=== PATIENT | female | born 1955 | race Caucasian/White ===

== ENCOUNTER → 2017-10-21 | Outpatient (CLI) | payer BC ==
--- NOTE | 2017-10-22 13:37 | MM ---
Reason for exam: screening (asymptomatic). Last mammogram was performed 1 year and 6 months ago. History: Patient is postmenopausal, has history of other cancer at age 58, and has history of colon cancer at age 57. Family history of breast cancer in paternal grandmother. Physical Findings: A clinical breast exam by your physician is recommended on an annual basis and results should be correlated with mammographic findings. MG Screening Mammo w CAD Bilateral CC and MLO view(s) were taken. Prior study comparison: April 16, 2016, bilateral MG 3d screening mammo w/cad. October 22, 2008, mammogram, performed at [facility] [place]. The breast tissue is almost entirely fat. No significant changes when compared with prior studies. ASSESSMENT: Benign, BI-RAD 2 RECOMMENDATION: Routine screening mammogram of both breasts in 1 year.
== END | disposition home or self-care (01) ==
LOC: RADMAMWWP 14:02
PROVIDERS: ATTEND Internal Medicine
DX: Z12.31 Encounter for screening mammogram for malignant neoplasm of breast (principal)
CPT/HCPCS: 77067

== ENCOUNTER → 2018-09-22 | Outpatient (CLI) | payer BC ==
[2018-09-22 12:31] LABS: Basophils % (A) 1 %; Eosinophils # (A) 0.2 k/uL (0-0.7); Eosinophils % (A) 3 %; HCT 41.4 % (34.0-46.0); HGB 13.3 gm/dL (11.4-16.0); Lymphocytes # (A) 2.6 k/uL (1.0-4.8); Lymphocytes % (A) 38 %; MCH 28.7 pg (25.0-35.0); MCHC 32.1 g/dL (31.0-37.0); MCV 89.4 fL (80.0-100.0); Mean Platelet Volume 6.1; Monocytes # (A) 0.3 k/uL (0-1.0); Monocytes % (A) 4 %; Neutrophils # (A) 3.7 k/uL (1.3-7.7); Neutrophils % (A) 53 %; Platelet Count 180 k/uL (150-450); RBC 4.63 m/uL (3.80-5.40); RDW 14.4 % (11.5-15.5); WBC 6.9 k/uL (3.8-10.6)
[2018-09-22 13:33] LABS: Erythrocyte Sedimentation Rate 19 mm/hr (0-20)
[2018-09-23 12:05] LABS: Angiotensin-1 Converting Enz. 7 U/L (8-52)
== END ==
LOC: LABWHC1 11:49
PROVIDERS: ATTEND Ophthalmology
DX: M31.6 Other giant cell arteritis (principal)
CPT/HCPCS: 36415; 82164; 85025; 85549; 85652; 86140

== ENCOUNTER 2019-12-12 16:50 | Emergency (ER) | payer BC ==
[2019-12-12 16:54] LABS: Glucose,Whole Blood 104 mg/dL (75-99)
[2019-12-12] MEDS ORDERED: SODIUM CHLORIDE 0.9% 1,000 ML IV ONE (17:33)
--- NOTE | 2019-12-12 17:43 | ED ---
General Adult HPI - General Chief complaint: Neuro Symptoms/Deficit Stated complaint: altered Time Seen by Provider: 12/12/19 17:21 Source: patient, EMS, RN notes reviewed Mode of arrival: EMS Limitations: no limitations - History of Present Illness Initial comments: Patient is a pleasant 64-year-old female presenting to the emergency department with change in mental status. Onset of symptoms was noticed around 9 AM when she woke this morning. Last reported known well was last night. Patient does have history of brain tumor and has recently been on chemo and radiation. Patient is a poor historian. Patient answers some questions appropriately and others inappropriately. Patient is unable to provide any additional history about brain tumor. Patient is able to follow commands appropriately. Patient reportedly has a chronic left facial droop. Patient does admit that she feels confused - Related Data Previous Rx's Medication Instructions Recorded Dexamethasone [Decadron] 4 mg PO BID #14 tablet 12/12/19 Allergies Allergy/AdvReac Type Severity Reaction Status Date / Time shellfish derived [Shellfish] Allergy Rash/Hives Verified 12/12/19 17:01 Review of Systems ROS Statement: Those systems with pertinent positive or pertinent negative responses have been documented in the HPI. ROS Other: All systems not noted in ROS Statement are negative. Constitutional: Denies: fever Eyes: Denies: eye pain ENT: Denies: ear pain Respiratory: Denies: cough Cardiovascular: Denies: chest pain Endocrine: Denies: fatigue Gastrointestinal: Denies: abdominal pain Genitourinary: Denies: dysuria Musculoskeletal: Denies: back pain Skin: Denies: rash Neurological: Reports: as per HPI, confusion. Denies: headache, weakness Past Medical History Past Medical History: Hyperlipidemia, Hypertension Additional Past Medical History / Comment(s): Brain tumor Smoking Status: Never smoker Past Alcohol Use History: None Reported Past Drug Use History: None Reported General Exam Limitations: no limitations General appearance: alert, in no apparent distress Head exam: Present: normocephalic Eye exam: Present: normal appearance, PERRL, EOMI ENT exam: Present: normal oropharynx Neck exam: Present: normal inspection Respiratory exam: Present: normal lung sounds bilaterally Cardiovascular Exam: Present: regular rate, normal rhythm GI/Abdominal exam: Present: soft. Absent: tenderness Extremities exam: Present: normal inspection Neurological exam: Present: alert, altered, CN II-XII intact (Except for left facial droop) Expanded Neurological exam: Present: protecting the airway, other (Patient occasionally speaks in nonsensical sentences) Patient oriented to: Present: person. Absent: place, time Cranial nerves: EOM's Intact: Normal Motor strength exam: RUE: 5, LUE: 5, RLE: 5, LLE: 5 Eye Response: (4) open spontaneously Motor Response: (6) obeys commands Verbal Response: (4) confused conversation Psychiatric exam: Present: normal affect, normal mood Skin exam: Present: normal color Course Vital Signs 12/12/19 12/12/19 12/12/19 16:50 16:52 17:00 Temperature 98.3 F 98.3 F Pulse Rate 60 112 H Respiratory 18 18 Rate Blood Pressure 164/96 164/96 181/64 O2 Sat by Pulse 98 98 98 Oximetry 12/12/19 12/12/19 12/12/19 17:15 17:30 17:45 Temperature Pulse Rate Respiratory 18 18 18 Rate Blood Pressure 177/81 168/88 195/88 O2 Sat by Pulse 98 98 98 Oximetry 12/12/19 12/12/19 17:59 19:17 Temperature 98.7 F Pulse Rate 112 H 102 H Respiratory 17 18 Rate Blood Pressure 181/84 O2 Sat by Pulse 97 97 Oximetry EKG Findings - EKG Comments: EKG Findings:: Sinus tachycardia 106. MT 150. QRS 86. QT 376. QTc 499. Normal axis. Normal QRS. No acute ST change. Medical Decision Making - Medical Decision Making Patient reevaluated twice. Patient and family updated. Case was discussed in detail with Dr. Ghosh out of [facility] who is very familiar with this patient. He feels CT findings are similar to previous and symptoms are likely from edema. He does recommend steroids, Decadron 10 mg IV followed by 4 mg orally twice daily. He recommends providing one week. He will file follow-up with this patient in less than a week. Patient and family are advised to call tomorrow. Dr. Ghosh said he would schedule patient for MRI. - Lab Data Result diagrams: 12/12/19 16:55 12/12/19 16:55 Lab Results 12/12/19 12/12/19 12/12/19 Range/Units 16:52 16:55 16:55 WBC 6.5 (3.8-10.6) k/uL RBC 3.28 L (3.80-5.40) m/uL Hgb 9.5 L (11.4-16.0) gm/dL Hct 29.8 L (34.0-46.0) % MCV 90.6 (80.0-100.0) fL MCH 28.8 (25.0-35.0) pg MCHC 31.8 (31.0-37.0) g/dL RDW 19.1 H (11.5-15.5) % Plt Count 211 (150-450) k/uL Neutrophils % 78 % Lymphocytes % 10 % Monocytes % 7 % Eosinophils % 1 % Basophils % 0 % Neutrophils # 5.1 (1.3-7.7) k/uL Lymphocytes # 0.7 L (1.0-4.8) k/uL Monocytes # 0.5 (0-1.0) k/uL Eosinophils # 0.1 (0-0.7) k/uL Basophils # 0.0 (0-0.2) k/uL Anisocytosis Slight PT 10.5 (9.0-12.0) sec INR 1.0 (<1.2) APTT 24.0 (22.0-30.0) sec Sodium (137-145) mmol/L Potassium (3.5-5.1) mmol/L Chloride (98-107) mmol/L Carbon Dioxide (22-30) mmol/L Anion Gap mmol/L BUN (7-17) mg/dL Creatinine (0.52-1.04) mg/dL Est GFR (CKD-EPI)AfAm (>60 ml/min/1.73 sqM) Est GFR (CKD-EPI)NonAf (>60 ml/min/1.73 sqM) Glucose (74-99) mg/dL POC Glucose (mg/dL) 104 H (75-99) mg/dL POC Glu Leather Sorter ID Korean, Priya Calcium (8.4-10.2) mg/dL Total Bilirubin (0.2-1.3) mg/dL AST (14-36) U/L ALT (4-34) U/L Alkaline Phosphatase (38-126) U/L Troponin I (0.000-0.034) ng/mL Total Protein (6.3-8.2) g/dL Albumin (3.5-5.0) g/dL Urine Opiates Screen (NotDetected) Ur Oxycodone Screen (NotDetected) Urine Methadone Screen (NotDetected) Ur Propoxyphene Screen (NotDetected) Ur Barbiturates Screen (NotDetected) U Tricyclic Antidepress (NotDetected) Ur Phencyclidine Scrn (NotDetected) Ur Amphetamines Screen (NotDetected) U Methamphetamines Scrn (NotDetected) U Benzodiazepines Scrn (NotDetected) Urine Cocaine Screen (NotDetected) U Marijuana (THC) Screen (NotDetected) 12/12/19 12/12/19 12/12/19 Range/Units 16:55 16:55 17:44 WBC (3.8-10.6) k/uL RBC (3.80-5.40) m/uL Hgb (11.4-16.0) gm/dL Hct (34.0-46.0) % MCV (80.0-100.0) fL MCH (25.0-35.0) pg MCHC (31.0-37.0) g/dL RDW (11.5-15.5) % Plt Count (150-450) k/uL Neutrophils % % Lymphocytes % % Monocytes % % Eosinophils % % Basophils % % Neutrophils # (1.3-7.7) k/uL Lymphocytes # (1.0-4.8) k/uL Monocytes # (0-1.0) k/uL Eosinophils # (0-0.7) k/uL Basophils # (0-0.2) k/uL Anisocytosis PT (9.0-12.0) sec INR (<1.2) APTT (22.0-30.0) sec Sodium 131 L (137-145) mmol/L Potassium 3.4 L (3.5-5.1) mmol/L Chloride 86 L (98-107) mmol/L Carbon Dioxide 35 H (22-30) mmol/L Anion Gap 10 mmol/L BUN 18 H (7-17) mg/dL Creatinine 0.86 (0.52-1.04) mg/dL Est GFR (CKD-EPI)AfAm 83 (>60 ml/min/1.73 sqM) Est GFR (CKD-EPI)NonAf 72 (>60 ml/min/1.73 sqM) Glucose 101 H (74-99) mg/dL POC Glucose (mg/dL) (75-99) mg/dL POC Glu Leather Sorter ID Calcium 8.5 (8.4-10.2) mg/dL Total Bilirubin 0.9 (0.2-1.3) mg/dL AST 22 (14-36) U/L ALT 10 (4-34) U/L Alkaline Phosphatase 58 (38-126) U/L Troponin I 0.016 (0.000-0.034) ng/mL Total Protein 6.6 (6.3-8.2) g/dL Albumin 3.7 (3.5-5.0) g/dL Urine Opiates Screen Detected H (NotDetected) Ur Oxycodone Screen Not Detected (NotDetected) Urine Methadone Screen Not Detected (NotDetected) Ur Propoxyphene Screen Not Detected (NotDetected) Ur Barbiturates Screen Not Detected (NotDetected) U Tricyclic Antidepress Not Detected (NotDetected) Ur Phencyclidine Scrn Not Detected (NotDetected) Ur Amphetamines Screen Not Detected (NotDetected) U Methamphetamines Scrn Not Detected (NotDetected) U Benzodiazepines Scrn Not Detected (NotDetected) Urine Cocaine Screen Not Detected (NotDetected) U Marijuana (THC) Screen Not Detected (NotDetected) - Radiology Data Radiology results: image reviewed (Computed tomography scan of brain shows edema involving left temporal lobe with extension to the floor with disruption of the greater sphenoid with soft tissue setting to the pterygoid region. Soft tissue extends posterior wall left maxillary sinus also with irregularity left temporal bone. Two-view chest x-ray shows no acute process) Disposition Clinical Impression: Expressive aphasia, Vasogenic brain edema Disposition: HOME SELF-CARE Condition: Stable Instructions (If sedation given, give patient instructions): Aphasia (DC), Expressive Aphasia Exercises (DC), Brain Tumors (DC) Additional Instructions: Please do follow-up with your primary care physician in the next couple of days for recheck. Please also follow-up with Dr. Mendosa within the next couple of days, call tomorrow. Return for increased confusion, difficulty breathing, weakness, worsening or changing symptoms or other concerns. Prescriptions: Dexamethasone [Decadron] 4 mg PO BID #14 tablet Is patient prescribed a controlled substance at d/c from ED?: No Referrals: Dara Ryan MD [Primary Care Provider] - 1-2 days Time of Disposition: 19:50
[2019-12-12 17:56] LABS: Anisocytosis Slight; Basophils % (A) 0 %; Eosinophils # (A) 0.1 k/uL (0-0.7); Eosinophils % (A) 1 %; HCT 29.8 % (34.0-46.0); HGB 9.5 gm/dL (11.4-16.0); Lymphocytes # (A) 0.7 k/uL (1.0-4.8); Lymphocytes % (A) 10 %; MCH 28.8 pg (25.0-35.0); MCHC 31.8 g/dL (31.0-37.0); MCV 90.6 fL (80.0-100.0); Monocytes # (A) 0.5 k/uL (0-1.0); Monocytes % (A) 7 %; Neutrophils # (A) 5.1 k/uL (1.3-7.7); Neutrophils % (A) 78 %; Platelet Count 211 k/uL (150-450); RBC 3.28 m/uL (3.80-5.40); RDW 19.1 % (11.5-15.5); WBC 6.5 k/uL (3.8-10.6)
[2019-12-12 18:04] LABS: Amphetamine Screen,Urine Not Detected (NotDetected); Barbiturate Screen,Urine Not Detected (NotDetected); Benzodiazepines Screen,Urine Not Detected (NotDetected); Cocaine Screen,Urine Not Detected (NotDetected); Methadone Screen, Urine Not Detected (NotDetected); Opiate Screen,Urine Detected (NotDetected); Oxycodone Screen, Urine Not Detected (NotDetected); Phencyclidine Screen,Urine Not Detected (NotDetected); Tricyclic Antidepressant,Urine Not Detected (NotDetected); Urn Cannabinoid Scrn Not Detected (NotDetected)
[2019-12-12 18:07] LABS: Albumin 3.7 g/dL (3.5-5.0); Calcium 8.5 mg/dL (8.4-10.2); Potassium 3.4 mmol/L (3.5-5.1); Total Bilirubin 0.9 mg/dL (0.2-1.3); Total Protein 6.6 g/dL (6.3-8.2)
[2019-12-12 18:14] LABS: Prothrombin Time 10.5 sec (9.0-12.0)
--- NOTE | 2019-12-12 18:14 | CT ---
EXAMINATION TYPE: CT brain wo con DATE OF EXAM: 12/12/2019 COMPARISON: None at this institution HISTORY: AMS, HX BRAIN TUMOR, CHEMO AND RADIATION CT DLP: 1035.[address] of the brain was performed. There is vasogenic edema involving the left temporal lobe with extension into the floor of the left t emporal lobe. There is destruction of the greater wing of the sphenoid on the left with soft tissue e xtending into the pterygoid region. Soft tissue extends to the posterior wall of the left maxillary s inus. There is also irregularity of the left temporal bone. There is complete opacification left mast oid air cells. There is decreased attenuation about the periventricular white matter and deep white matter of both c erebral hemispheres, compatible with chronic small vessel ischemia. Differential diagnosis does inclu de demyelination. No evidence for midline shift. No intracranial hemorrhage identified. Osseous calvarium is intact. If symptoms persist consider MRI. IMPRESSION: 1. There is vasogenic edema involving the left temporal lobe with extension into the floor of the lef t temporal lobe. There is destruction of the greater wing of the sphenoid on the left with soft tissu e extending into the pterygoid region. Soft tissue extends to the posterior wall of the left maxillar y sinus. There is also irregularity of the left temporal bone.
--- NOTE | 2019-12-12 18:18 | XR ---
EXAMINATION TYPE: XR chest 2V DATE OF EXAM: 12/12/2019 COMPARISON: 02/23/2013 HISTORY: Chest pain TECHNIQUE: Frontal and lateral views of the chest are obtained. FINDINGS: There is no focal air space opacity. Right-sided MediPort catheter is in place. No evidence for pneumothorax. No pleural effusion. The cardiac silhouette size is within normal limits. The osseous structures are grossly intact. IMPRESSION: 1. No acute cardiopulmonary process.
[2019-12-12 19:17] VITALS: RESP 18
[2019-12-12] MEDS ORDERED: DEXAMETHASONE SOD PHOSPHATE 10 MG/ML 1 ML VIAL IV STA (19:33)
[2019-12-12 19:56] VITALS: BP 172/92; PULSE 116; TEMP 98.6
== END 2019-12-12 20:00 | disposition home or self-care (01) ==
LOC: EC 16:50
DX: G93.6 Cerebral edema (principal); R47.01 Aphasia; R29.810 Facial weakness; R41.82 Altered mental status, unspecified; Z91.013 Allergy to seafood; Z85.841 Personal history of malignant neoplasm of brain; Z92.21 Personal history of antineoplastic chemotherapy; Z92.3 Personal history of irradiation
CPT/HCPCS: 36415; 93005; 80053; 84484; 85025; 85610; 85730; 80306; 71046; 70450; 99285; 96374; J1100

== ENCOUNTER 2020-01-15 11:51 | Inpatient (IN) | payer BC, MEDICARE ==
[2020-01-15] MEDS ORDERED: SODIUM CHLORIDE 0.9% 500 ML 500 ML IV ONE (12:07)
[2020-01-15] MEDS ORDERED: SODIUM CHLORIDE 0.9% 1,000 ML IV STA (12:19)
--- NOTE | 2020-01-15 12:22 | ED ---
General Adult HPI - General Chief complaint: Syncope Stated complaint: Near syncope Time Seen by Provider: 01/15/20 11:57 Source: patient, family, EMS, RN notes reviewed Mode of arrival: EMS Limitations: no limitations - History of Present Illness Initial comments: Patient is a pleasant [age]-year-old female presenting to the emergency Department with near syncopal episode. 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 Patient finished chemo and radiation one week ago. Patient has been more fatigued the past few days. Decreased oral intake secondary to swelling on the left side of the face and difficulty opening her jaw. Patient is not currently on Decadron. Patient had an episode this morning where she felt generally weak and fell. Family helped her lower down without injury. No loss of consciousness. No confusion. - Related Data Home Medications Medication Instructions Recorded Confirmed Dapagliflozin Propanediol [Farxiga] 10 mg PO DAILY 01/15/20 01/15/20 Dexamethasone [Decadron] 4 mg PO Q48H 01/15/20 01/15/20 Gabapentin 900 mg PO TID 01/15/20 01/15/20 Levothyroxine Sodium [Synthroid] 175 mcg PO DAILY 01/15/20 01/15/20 Lisinopril 20 mg PO BID 01/15/20 01/15/20 Morphine Sulfate ER [Ms Contin] 30 mg PO Q12HR 01/15/20 01/15/20 amLODIPine [Norvasc] 10 mg PO DAILY 01/15/20 01/15/20 metFORMIN HCL 1,000 mg PO BID 01/15/20 01/15/20 oxyCODONE HCL/ACETAMINOPHEN 1 tab PO Q6HR 01/15/20 01/15/20 [Percocet 7.5-325 mg] Allergies Allergy/AdvReac Type Severity Reaction Status Date / Time shellfish derived [Shellfish] Allergy Rash/Hives Verified 01/15/20 12:50 Review of Systems ROS Statement: Those systems with pertinent positive or pertinent negative responses have been documented in the HPI. ROS Other: All systems not noted in ROS Statement are negative. 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 History of Any Multi-Drug Resistant Organisms: None Reported Past Surgical History: Cholecystectomy, Orthopedic Surgery Additional Past Surgical History / Comment(s): right chest port Past Psychological History: No Psychological Hx Reported Smoking Status: Never smoker Past Alcohol Use History: None Reported Past Drug Use History: None Reported General Exam Limitations: no limitations General appearance: alert, in no apparent distress Head exam: Present: atraumatic, other ((Facial swelling) Eye exam: Present: other (Left eye with cataract and decreased responsiveness.) ENT exam: Present: other (Only able to open his mouth approximately 25%. No gross abnormality otherwise visualize inside. Left facial swelling.) Neck exam: Present: normal inspection Respiratory exam: Present: normal lung sounds bilaterally Cardiovascular Exam: Present: tachycardia, irregular rhythm GI/Abdominal exam: Present: soft. Absent: tenderness Extremities exam: Present: normal inspection Neurological exam: Present: alert. Absent: motor sensory deficit Expanded Motor strength exam: RUE: 5, LUE: 5, RLE: 4, LLE: 4 Psychiatric exam: Present: normal affect, normal mood Skin exam: Present: normal color Course Vital Signs 01/15/20 01/15/20 01/15/20 11:53 12:05 12:26 Temperature 98 F Pulse Rate 165 H 113 H 114 H Respiratory 18 18 18 Rate Blood Pressure 107/78 111/80 125/83 O2 Sat by Pulse 98 98 Oximetry 01/15/20 14:33 Temperature Pulse Rate 104 H Respiratory 18 Rate Blood Pressure 126/69 O2 Sat by Pulse 98 Oximetry EKG Findings - EKG Comments: EKG Findings:: A. fib with RVR, rate 163. QRS 4. QT 266. QTc 438. Normal axis. Normal QRS. Nonspecific ST-T. Medical Decision Making - Medical Decision Making Patient reevaluated. Patient and family updated. Case was discussed in detail with Dr. Bui, who did come evaluate the patient and will admit covering for Dr. Ryan. Case was also discussed with oncology, Dr. Jaramillo and practitioner Dannie including CT report and pneumocephalus, who will consult. They do recommend Unasyn at this time. - Lab Data Result diagrams: 01/15/20 12:00 01/15/20 12:00 Lab Results 01/15/20 01/15/20 01/15/20 Range/Units 12:00 12:00 12:00 WBC 10.4 (3.8-10.6) k/uL RBC 3.26 L (3.80-5.40) m/uL Hgb 10.0 L (11.4-16.0) gm/dL Hct 31.2 L (34.0-46.0) % MCV 96.0 D (80.0-100.0) fL MCH 30.8 (25.0-35.0) pg MCHC 32.1 (31.0-37.0) g/dL RDW 16.9 H (11.5-15.5) % Plt Count 189 (150-450) k/uL Neutrophils % 90 % Lymphocytes % 3 % Monocytes % 4 % Eosinophils % 1 % Basophils % 0 % Neutrophils # 9.4 H (1.3-7.7) k/uL Lymphocytes # 0.3 L (1.0-4.8) k/uL Monocytes # 0.5 (0-1.0) k/uL Eosinophils # 0.1 (0-0.7) k/uL Basophils # 0.0 (0-0.2) k/uL Anisocytosis Slight PT 10.2 (9.0-12.0) sec INR 1.0 (<1.2) APTT 27.1 (22.0-30.0) sec Sodium 131 L (137-145) mmol/L Potassium 4.5 (3.5-5.1) mmol/L Chloride 100 (98-107) mmol/L Carbon Dioxide 23 (22-30) mmol/L Anion Gap 8 mmol/L BUN 36 H (7-17) mg/dL Creatinine 1.07 H (0.52-1.04) mg/dL Est GFR (CKD-EPI)AfAm 63 (>60 ml/min/1.73 sqM) Est GFR (CKD-EPI)NonAf 55 (>60 ml/min/1.73 sqM) Glucose 137 H (74-99) mg/dL Calcium 8.2 L (8.4-10.2) mg/dL Magnesium 1.2 L (1.6-2.3) mg/dL Total Bilirubin 1.0 (0.2-1.3) mg/dL AST 15 (14-36) U/L ALT 13 (4-34) U/L Alkaline Phosphatase 91 (38-126) U/L Troponin I (0.000-0.034) ng/mL Total Protein 5.8 L (6.3-8.2) g/dL Albumin 3.0 L (3.5-5.0) g/dL 01/15/20 Range/Units 12:00 WBC (3.8-10.6) k/uL RBC (3.80-5.40) m/uL Hgb (11.4-16.0) gm/dL Hct (34.0-46.0) % MCV (80.0-100.0) fL MCH (25.0-35.0) pg MCHC (31.0-37.0) g/dL RDW (11.5-15.5) % Plt Count (150-450) k/uL Neutrophils % % Lymphocytes % % Monocytes % % Eosinophils % % Basophils % % Neutrophils # (1.3-7.7) k/uL Lymphocytes # (1.0-4.8) k/uL Monocytes # (0-1.0) k/uL Eosinophils # (0-0.7) k/uL Basophils # (0-0.2) k/uL Anisocytosis PT (9.0-12.0) sec INR (<1.2) APTT (22.0-30.0) sec Sodium (137-145) mmol/L Potassium (3.5-5.1) mmol/L Chloride (98-107) mmol/L Carbon Dioxide (22-30) mmol/L Anion Gap mmol/L BUN (7-17) mg/dL Creatinine (0.52-1.04) mg/dL Est GFR (CKD-EPI)AfAm (>60 ml/min/1.73 sqM) Est GFR (CKD-EPI)NonAf (>60 ml/min/1.73 sqM) Glucose (74-99) mg/dL Calcium (8.4-10.2) mg/dL Magnesium (1.6-2.3) mg/dL Total Bilirubin (0.2-1.3) mg/dL AST (14-36) U/L ALT (4-34) U/L Alkaline Phosphatase (38-126) U/L Troponin I <0.012 (0.000-0.034) ng/mL Total Protein (6.3-8.2) g/dL Albumin (3.5-5.0) g/dL - Radiology Data Radiology results: report reviewed (Computed tomography scan of the brain shows left temporal mass or neoplasm redemonstrated. 2.2 x 0.9 cm. Left temporal lobe extending to parietal lobe. Distraction of temporal bone and maxilla. Abnormal tissue extending to the left orbit and left masseter muscles. Some pneumocephalus inferior left temporal lobe now present.), image reviewed (Chest x-ray shows chronic changes without acute process.) Disposition Clinical Impression: Dehydration, Near syncope, Brain mass Disposition: ADMITTED IP TO THIS HOSP Is patient prescribed a controlled substance at d/c from ED?: No Referrals: Dara Ryan MD [Primary Care Provider] - 1-2 days Decision Time: 15:04
[2020-01-15 12:35] LABS: Anisocytosis Slight; Basophils % (A) 0 %; Eosinophils # (A) 0.1 k/uL (0-0.7); Eosinophils % (A) 1 %; HCT 31.2 % (34.0-46.0); Lymphocytes # (A) 0.3 k/uL (1.0-4.8); Lymphocytes % (A) 3 %; MCH 30.8 pg (25.0-35.0); MCHC 32.1 g/dL (31.0-37.0); Mean Platelet Volume 6.9; Monocytes # (A) 0.5 k/uL (0-1.0); Monocytes % (A) 4 %; Neutrophils # (A) 9.4 k/uL (1.3-7.7); Neutrophils % (A) 90 %; Platelet Count 189 k/uL (150-450); RBC 3.26 m/uL (3.80-5.40); RDW 16.9 % (11.5-15.5); WBC 10.4 k/uL (3.8-10.6)
[2020-01-15 12:48] LABS: Partial Thromboplastin Time 27.1 sec (22.0-30.0); Prothrombin Time 10.2 sec (9.0-12.0)
[2020-01-15 12:58] LABS: Calcium 8.2 mg/dL (8.4-10.2); Magnesium 1.2 mg/dL (1.6-2.3); Potassium 4.5 mmol/L (3.5-5.1); Total Protein 5.8 g/dL (6.3-8.2)
[2020-01-15] MEDS ORDERED: MAGNESIUM SULFATE-D5W PMX 1 GM in DEXTROSE/WATER 1 100ML.BAG IVPB ONE (13:22)
[2020-01-15] MEDS ORDERED: SODIUM CHLORIDE 0.9% 500 ML 500 ML IV STA (13:22)
--- NOTE | 2020-01-15 13:30 | XR ---
EXAMINATION TYPE: XR chest 2V DATE OF EXAM: 01/15/2020 COMPARISON: Chest x-ray December 12, 2019 HISTORY: Syncope. Weakness. History of brain tumor. TECHNIQUE: Frontal and lateral views of the chest are obtained. FINDINGS: Stable right internal jugular Mediport catheter. There is some chronic parenchymal changes without suspicious new focal air space opacity, pleural effusion, or pneumothorax seen. The cardiac silhouette size remains within normal limits with atherosclerotic change in the aortic knob. The o sseous structures are intact. Cholecystectomy clips are present on lateral view. IMPRESSION: Chronic changes without acute pulmonary process. No significant change from prior.
--- NOTE | 2020-01-15 14:01 | CT ---
EXAMINATION TYPE: CT brain wo/w con DATE OF EXAM: 01/15/2020 COMPARISON: CT brain December 12, 2019. HISTORY: Near syncope, history of brain tumor CT DLP: 2158.4 mGycm Automated exposure control for dose reduction was used. CONTRAST: CT scan of the head is performed without and with IV Contrast, patient injected with 100 ml mL of Iso edda 300. FINDINGS: Noncontrast images show no acute intracranial hemorrhage or new midline shift. Mild bilateral frontal lobe atrophy redemonstrated. There is persistent inferior left temporal mass or tumor measuring 2.2 x 0.9 cm postcontrast axial im age 9 with significant soft tissue swelling and vasogenic edema through the entire left temporal lob e extending into the parietal lobe. There is bony destruction of the temporal bone and maxilla with a bnormal tissue extending into the left orbit posteriorly and involving the left masseter muscles with indistinct fat planes. There is erosive change in bony destruction up to the clivus. Opacified left ethmoid sinuses with air-fluid levels in the sphenoid sinuses bilaterally is noted. Left globe only p artially imaged on current study. Some pneumocephalus inferior left temporal lobe now present axial i mage 8 for reference. IMPRESSION: Aggressive destructive left temporal mass or neoplasm redemonstrated as detailed above.
[2020-01-15] MEDS ORDERED: AMPICILLIN-SULBACTAM 1.5 GM in SODIUM CHLORIDE 0.9% 50 ML IVPB STA (15:02)
[2020-01-15] MEDS ORDERED: NALOXONE 0.4 MG/ML 1 ML VIAL IV PRN (15:04)
[2020-01-15 15:27] VITALS: RESP 16
[2020-01-15 15:30] LABS: Appearance,Urine Clear (Clear); Bilirubin,Urine Negative (Negative); Blood,Urine Negative (Negative); Color,Urine Yellow; Glucose,Urine (UA) 4+ (Negative); Ketones,Urine Trace (Negative); Leukocyte Esterase,Urine Negative (Negative); Nitrite,Urine Negative (Negative); Protein,Urine Trace (Negative); Specific Gravity,Urine 1.024 (1.001-1.035); Urobilinogen,Urine <2.0 mg/dL (<2.0)
[2020-01-15] MEDS ORDERED: DOCUSATE 100 MG CAP PO PRN (16:35)
[2020-01-15] MEDS ORDERED: METOPROLOL TARTRATE 25 MG TAB PO SCH (16:36)
--- NOTE | 2020-01-15 16:48 | P.HPIM ---
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 Patient has not been eating well for the past 2 weeks and felt very weak. Patient patient has decreased oral intake due to difficulty opening her age. Patient was about to fall her son did hold her without falling/injury. Denied any loss of consciousness. No fever no chills. No chest pain or short of breath. No cough or sputum production. EKG showed A. fib with RVR. Heart rate 168. Chest x-ray showed chronic changes without acute pulmonary process. No significant changes from prior. CT head showed aggressive destructive left temporal mass or neoplasm as stated. There is bony destruction of the temporal bone and maxilla with abnormal tissue extending into the left orbit posteriorly and involving the left masseter muscles with indistinct fat planes. There is erosive change in the bony destruction up to the clivus. Opacified left ethmoid sinuses with air-fluid levels in the sphenoid sinuses bilaterally is noted. Some pneumocephalus inferior left temporal lobe no present Patient is a poor historian and most of the history was taken from her son at bedside. Review of Systems Constitutional: Patient denies any fever or chills . Generalized weakness and fatigue. Abdomen: Patient denied nausea vomiting and diarrhea and abdominal pain. Cardiovascular: Patient denies any chest pain or short of breath no palpitations. Respiratory: patient denied any cough is from production. No shortness of breath Neurologic: Patient denied any numbness or tingling headache. Musculoskeletal: Patient denies any complaints of joint swelling or deformity. Complete review of systems could not be obtained from the patient. 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 pylori, colitis, NIDDM type II, hypothyroid. History of Any Multi-Drug Resistant Organisms: None Reported Past Surgical History: Appendectomy, Bowel Resection, Cholecystectomy, Orthoped ic Surgery, Tonsillectomy Additional Past Surgical History / Comment(s): right chest port, colon resection, skin cancer removal, benign ovarian mass removed, L foot bunionecto my/spurs removed. Past Anesthesia/Blood Transfusion Reactions: No Reported Reaction Smoking Status: Former smoker - Past Family History Father Family Medical History: Diabetes Mellitus Mother Family Medical History: No Reported History Medications and Allergies Home Medications Medication Instructions Recorded Confirmed Type Dapagliflozin Propanediol [Farxiga] 10 mg PO DAILY 01/15/20 01/15/20 History Dexamethasone [Decadron] 4 mg PO Q48H 01/15/20 01/15/20 History Gabapentin 900 mg PO TID 01/15/20 01/15/20 History Levothyroxine Sodium [Synthroid] 175 mcg PO DAILY 01/15/20 01/15/20 History Lisinopril 20 mg PO BID 01/15/20 01/15/20 History Morphine Sulfate ER [Ms Contin] 30 mg PO Q12HR 01/15/20 01/15/20 History amLODIPine [Norvasc] 10 mg PO DAILY 01/15/20 01/15/20 History metFORMIN HCL 1,000 mg PO BID 01/15/20 01/15/20 History oxyCODONE HCL/ACETAMINOPHEN 1 tab PO Q6HR 01/15/20 01/15/20 History [Percocet 7.5-325 mg] Allergies Allergy/AdvReac Type Severity Reaction Status Date / Time shellfish derived [Shellfish] Allergy Rash/Hives Verified 01/15/20 12:50 Physical Exam Vitals: Vital Signs Temp Pulse Resp BP Pulse Ox 01/15/20 16:06 100 16 125/69 99 01/15/20 15:24 107 H 16 141/66 98 01/15/20 14:33 104 H 18 126/69 98 01/15/20 12:26 114 H 18 125/83 98 01/15/20 12:05 113 H 18 111/80 01/15/20 11:53 98 F 165 H 18 107/78 98 Intake and Output 01/15/20 01/15/20 01/15/20 06:59 14:59 22:59 Other: Weight 78.018 kg 78.018 kg PHYSICAL EXAMINATION: Patient is lying in the bed comfortably, no acute distress, awake alert and oriented. Lethargic and drowsy.. HEENT: Normocephalic. Firm Swelling and tenderness over the left jaw and face and temporal region. Neck is supple. Pupils reactive. Nostrils clear. Oral cavity dry. Unable to open her mouth. Ears reveal no drainage. Neck reveals no JVD, carotid bruits, or thyromegaly. CHEST EXAMINATION: Trachea is central. Symmetrical expansion. Bibasilar diminished air entry. Lung hinton clear to auscultation and percussion. CARDIAC: Normal S1, S2 with no gallops. No murmurs ., Irregular rhythm. ABDOMEN: Soft. Bowel sounds normal. No organomegaly. No abdominal bruits. Extremities: reveal no edema. No clubbing or cyanosis Neurologically awake, alert, oriented x3 with well-coordinated movements. But lethargic. No gross focal deficits noted Skin: No rash or skin lesions. Psychiatric: Coperative. Could not be assessed completely. Musculoskeletal: No joint swelling or deformity. Normal range of motion. Results CBC & Chem 7: 01/15/20 12:00 01/15/20 12:00 Labs: Abnormal Lab Results - Last 24 Hours (Table) 01/15/20 01/15/20 01/15/20 Range/Units 12:00 12:00 14:55 RBC 3.26 L (3.80-5.40) m/uL Hgb 10.0 L (11.4-16.0) gm/dL Hct 31.2 L (34.0-46.0) % RDW 16.9 H (11.5-15.5) % Neutrophils # 9.4 H (1.3-7.7) k/uL Lymphocytes # 0.3 L (1.0-4.8) k/uL Sodium 131 L (137-145) mmol/L BUN 36 H (7-17) mg/dL Creatinine 1.07 H (0.52-1.04) mg/dL Glucose 137 H (74-99) mg/dL Calcium 8.2 L (8.4-10.2) mg/dL Magnesium 1.2 L (1.6-2.3) mg/dL Total Protein 5.8 L (6.3-8.2) g/dL Albumin 3.0 L (3.5-5.0) g/dL Urine Protein Trace H (Negative) Urine Glucose (UA) 4+ H (Negative) Urine Ketones Trace H (Negative) Thrombosis Risk Factor Assmnt - DVT/VTE Prophylaxis DVT/VTE Prophylaxis: Pharmacologic Prophylaxis ordered - Choose All That Apply Any of the Below Risk Factors Present?: Yes Each Factor Represents 1 point: Obesity (BMI >25) Other Risk Factors: Yes Each Risk Factor Represents 2 Points: Age 61-74 years, Malignancy Other congenital or acquired thrombophilia - If yes, enter type in comment: No Thrombosis Risk Factor Assessment Total Risk Factor Score: 5 Thrombosis Risk Factor Assessment Level: High Risk Assessment and Plan Assessment: Near syncope likely due to A. fib with RVR along with dehydration and volume depletion. New onset A. fib with RVR. Rate controlled now. Hypomagnesemia Acute kidney injury likely prerenal Squamous cell carcinoma of the left jaw, temporal region with cerebral edema. Status post chemoradiation. Continue with dexamethasone. Pneumoencephalus inferior left temporal lobe Failure thrive/failure to thrive due to difficulty in jaw opening. Hypertension Hyperlipidemia GERD Obstructive sleep apnea not on CPAP at home Diabetes type 2 [id number] Hypothyroidism History of skin cancer removed Previous history of colon cancer status post colectomy and chemotherapy DVT prophylaxis with heparin subcu Plan: Patient be continued on IV hydration and replace electrolytes. Monitor renal function. Added antibiotics no cough Unasyn due to Pneumoencephalus. Telemetry monitoring and metoprolol will be added for heart rate control. Cardiology and oncology will be consulted. Further recommendations based on the clinical course. Prognosis is guarded. Discussed with her son at bedside in detail. Time with Patient: Greater than 30
[2020-01-15] MEDS: oxyCODONE-APAP 7.5-325MG 1 EACH TAB PO SCH (16:54)
[2020-01-15] MEDS ORDERED: DEXAMETHASONE 4 MG TAB PO SCH (17:00)
[2020-01-15] MEDS ORDERED: HEPARIN SODIUM,PORCINE 5,000 UNIT/ML 1 ML VIAL IV PRN (17:41)
[2020-01-15] MEDS: HEPARIN SOD,PORK IN 0.45% NACL 25,000 UNIT in 0.45% NACL 1 250ML.BAG IV SCH (19:24)
[2020-01-15] MEDS: FAMOTIDINE 20 MG TAB PO SCH (20:14)
[2020-01-15] MEDS: MORPHINE SULFATE ER 30 MG TABLET PO SCH (20:14)
[2020-01-15] MEDS: METOPROLOL TARTRATE 25 MG TAB PO SCH (22:17)
[2020-01-15] MEDS: GABAPENTIN 300 MG CAP PO SCH (22:17)
[2020-01-15] MEDS: AMPICILLIN-SULBACTAM 1.5 GM in SODIUM CHLORIDE 0.9% 50 ML IVPB SCH (22:18)
[2020-01-16] MEDS ORDERED: HEPARIN SODIUM,PORCINE 5,000 UNIT/ML 1 ML VIAL SQ SCH
[2020-01-16] MEDS: oxyCODONE-APAP 7.5-325MG 1 EACH TAB PO SCH ×4 (00:56→17:50)
[2020-01-16] MEDS: AMPICILLIN-SULBACTAM 1.5 GM in SODIUM CHLORIDE 0.9% 50 ML IVPB SCH ×3 (04:06→16:52)
[2020-01-16] MEDS ORDERED: LEVOTHYROXINE SODIUM 100 MCG, LEVOTHYROXINE SODIUM 75 MCG PO SCH ×2 (06:30)
[2020-01-16] MEDS: MORPHINE SULFATE ER 30 MG TABLET PO SCH ×2 (08:33→20:01)
[2020-01-16] MEDS: FAMOTIDINE 20 MG TAB PO SCH (08:34)
[2020-01-16] MEDS: METOPROLOL TARTRATE 25 MG TAB PO SCH (08:34)
[2020-01-16] MEDS: GABAPENTIN 300 MG CAP PO SCH ×2 (08:34→16:52)
[2020-01-16] MEDS ORDERED: NON FORMULARY DRUG (Levothyroxine Sodium [Synthroid] 175 MCG) PO SCH (09:00)
[2020-01-16 09:50] LABS: Anisocytosis Slight; Basophils % (A) 0 %; Eosinophils % (A) 0 %; HCT 25.2 % (34.0-46.0); Lymphocytes # (A) 0.2 k/uL (1.0-4.8); Lymphocytes % (A) 6 %; MCH 30.7 pg (25.0-35.0); MCHC 31.9 g/dL (31.0-37.0); MCV 96.3 fL (80.0-100.0); Mean Platelet Volume 7.2; Monocytes # (A) 0.2 k/uL (0-1.0); Monocytes % (A) 4 %; Neutrophils # (A) 3.7 k/uL (1.3-7.7); Neutrophils % (A) 89 %; Platelet Count 123 k/uL (150-450); RBC 2.61 m/uL (3.80-5.40); RDW 16.8 % (11.5-15.5); WBC 4.2 k/uL (3.8-10.6)
[2020-01-16 11:26] LABS: Potassium 4.5 mmol/L (3.5-5.1)
[2020-01-16 11:41] VITALS: BP 119/76; PULSE 67; TEMP 97.5
--- NOTE | 2020-01-16 13:17 | P.CRDCN ---
History of Present Illness History of present illness: HISTORY OF PRESENTING ILLNESS This is a pleasant 64-year-old female past medical history significant for hypertension, dyslipidemia, diabetes mellitus, squamous cell jaw cancer sta tus post chemo and radiation last treatment was 12/04/2019 and prior history of colon cancer status post colectomy. 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 We have been asked to see in consultation for atrial fibrillation. She presented to the hospital yesterday with her with symptoms of increased weakness, poor oral intake and fall. Initial EKG on admission revealed atrial fibrillation with rapid ventricular rate. Heart rate was approximately 163. She was initiated on IV heparin, metoprolol and admitted to the hospital. She did subsequently convert to sinus mechanism spontaneously and has been maintaining. She is seen and examined sitting up in bed in no acute distress. She is quite fatigued. She states she has unable to tolerate oral intake secondary to jaw pain. She denies symptoms of chest pain, dizziness or palpitations. She does feel increasingly fatigued and somewhat short of breath. Chest x-ray is negative for an acute cardiopulmonary process. Laboratory data reviewed, WBC 4.2, hemoglobin 8.0, platelets 123, sodium 133, potassium 4.5, creatinine 0.82, magnesium on admission 1.2, cardiac enzymes negative 1. Current daily cardiac medications include lisinopril 20 mg twice a day and amlodipine 10 mg daily. According to the patient's she has no prior cardiac history and has not had any cardiac testing in the past. REVIEW OF SYSTEMS At the time of my exam: CONSTITUTIONAL: Denies fever or chills. CARDIOVASCULAR: Denies chest pain, shortness of breath, orthopnea, PND or palpi tations. RESPIRATORY: Denies cough. GASTROINTESTINAL: Denies abdominal pain, diarrhea, constipation, nausea or vomiting. MUSCULOSKELETAL: Denies myalgias. NEUROLOGIC: Denies numbness, tingling or weakness. ENDOCRINE: Complains of fatigue. Denies weight change, polydipsia or polyurina. GENITOURINARY: Denies burning, hematuria or urgency with micturation. HEMATOLOGIC: Denies history of anemia or bleeding. PHYSICAL EXAMINATION Blood pressure 119/76 heart rate 67 afebrile and maintaining oxygen saturation on room air. CONSTITUTIONAL: No apparent distress. HEENT: Head is normocephalic. Pupils are equal, round. Sclerae anicteric. Mucous membranes of the mouth are moist. No JVD. No carotid bruit. CHEST EXAMINATION: Trace scattered rhonchi, no rales or wheezing. No chest wall tenderness is noted on palpation or with deep breathing. HEART EXAMINATION: Regular rate and rhythm. S1, S2 heard. Systolic ejection murmur at the base, no gallops or rub. ABDOMEN: Soft, nontender. Positive bowel sounds. EXTREMITIES: 2+ peripheral pulses, no lower extremity edema and no calf tenderness. NEUROLOGIC EXAMINATION: Patient is awake, alert and oriented x3. ASSESSMENT New onset paroxysmal atrial fibrillation with rapid ventricular rates Hypomagnesemia Squamous cell carcinoma of the left jaw, temporal region and optic nerve status post chemo and radiation Hypertension Dyslipidemia Diabetes mellitus PLAN We will check the cost of Eliquis 5 mg twice a day, heparin drip can be discontinued tonight at 1800 with Eliquis to start at 2100. The risk of thromboembolic phenomenon discussed with that patient and her in great detail as well as the increased risk of bleeding while taking anti-coagulation. Decrease lopressor to BID dosing rather than TID since she has converted. Obtain 2D echocardiogram and doppler study to assess cardiac structure and function. Magnesium has been replaced, repeat level in the morning. Check thyroid function. Thank you kindly for this consultation. Nurse Practitioner note has been reviewed, I agree with a documented findings and plan of care. Patient was seen and examined. 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 pylori, colitis, NIDDM type II, hypothyroid. History of Any Multi-Drug Resistant Organisms: None Reported Past Surgical History: Appendectomy, Bowel Resection, Cholecystectomy, Orthopedic Surgery, Tonsillectomy Additional Past Surgical History / Comment(s): right chest port, colon resection, skin cancer removal, benign ovarian mass removed, L foot bunionectomy/spurs removed. Past Anesthesia/Blood Transfusion Reactions: No Reported Reaction Smoking Status: Former smoker - Past Family History Father Family Medical History: Diabetes Mellitus Mother Family Medical History: No Reported History Medications and Allergies Home Medications Medication Instructions Recorded Confirmed Type Dapagliflozin Propanediol [Farxiga] 10 mg PO DAILY 01/15/20 01/15/20 History Dexamethasone [Decadron] 4 mg PO Q48H 01/15/20 01/15/20 History Gabapentin 900 mg PO TID 01/15/20 01/15/20 History Levothyroxine Sodium [Synthroid] 175 mcg PO DAILY 01/15/20 01/15/20 History Lisinopril 20 mg PO BID 01/15/20 01/15/20 History Morphine Sulfate ER [Ms Contin] 30 mg PO Q12HR 01/15/20 01/15/20 History amLODIPine [Norvasc] 10 mg PO DAILY 01/15/20 01/15/20 History metFORMIN HCL 1,000 mg PO BID 01/15/20 01/15/20 History oxyCODONE HCL/ACETAMINOPHEN 1 tab PO Q6HR 01/15/20 01/15/20 History [Percocet 7.5-325 mg] Apixaban [Eliquis] 5 mg PO BID #60 tab 01/16/20 Rx Allergies Allergy/AdvReac Type Severity Reaction Status Date / Time shellfish derived [Shellfish] Allergy Rash/Hives Verified 01/15/20 12:50 Physical Exam Vitals: Vital Signs Temp Pulse Pulse Resp BP BP Pulse Ox 01/16/20 11:41 97.5 F L 67 16 119/76 98 01/16/20 05:36 97.8 F 71 16 117/61 98 01/15/20 20:00 98.4 F 100 16 125/65 97 01/15/20 16:38 97.7 F 100 111/67 99 01/15/20 16:06 100 16 125/69 99 01/15/20 15:24 107 H 16 141/66 98 01/15/20 14:33 104 H 18 126/69 98 Intake and Output 01/15/20 01/16/20 01/16/20 22:59 06:59 14:59 Intake Total 230 256.599 Balance 230 256.599 Intake: Intake, IV Titration 50 136.599 Amount Ampicillin-Sulbactam 1.5 50 50 gm In Sodium Chloride 0.9 % 50 ml @ 100 mls/hr IVPB ONCE STA Rx#:[id number] Heparin Sod,Pork in 0.45% 86.599 NaCl 25,000 unit In 0.45 % NaCl 1 250ml.bag @ 12 UNITS/KG/HR 9.362 mls/hr IV .Q24H [facility] Rx#: [id number] Oral 180 120 Other: Voiding Method Bedside Commode Bedside Commode Bedside Commode # Voids 2 1 Weight 78.018 kg Results 01/16/20 09:05 01/16/20 09:05 Cardiac Enzymes 01/15/20 Range/Units 12:00 Troponin I <0.012 (0.000-0.034) ng/mL Coagulation 01/15/20 01/16/20 Range/Units 23:15 09:05 APTT 29.0 48.0 H (22.0-30.0) sec CBC 01/16/20 Range/Units 09:05 WBC 4.2 (3.8-10.6) k/uL RBC 2.61 L (3.80-5.40) m/uL Hgb 8.0 L D (11.4-16.0) gm/dL Hct 25.2 L (34.0-46.0) % Plt Count 123 L (150-450) k/uL Comprehensive Metabolic Panel 01/16/20 Range/Units 09:05 Sodium 133 L (137-145) mmol/L Potassium 4.5 (3.5-5.1) mmol/L Chloride 103 (98-107) mmol/L Carbon Dioxide 23 (22-30) mmol/L BUN 32 H (7-17) mg/dL Creatinine 0.82 (0.52-1.04) mg/dL Glucose 147 H (74-99) mg/dL Calcium 8.0 L (8.4-10.2) mg/dL Current Medications Generic Name Dose Route Start Last Admin Trade Name Freq PRN Reason Stop Dose Admin Apixaban 5 mg 01/16/20 21:00 Eliquis PO BID [facility] Dexamethasone 4 mg 01/15/20 17:00 01/15/20 16:55 Hexadrol PO 4 mg Q48H [facility] Administration Docusate Sodium 100 mg 01/15/20 16:35 Colace PO DAILY PRN Constipation Famotidine 20 mg 01/15/20 21:00 01/16/20 08:34 Pepcid PO 20 mg BID G[facility] Administration Gabapentin 900 mg 01/15/20 22:00 01/16/20 08:34 Neurontin PO 900 mg TID G[facility] Administration Heparin Sodium (Porcine) 0 unit 01/15/20 17:41 01/16/20 04:43 Heparin IV 01/16/20 18:00 3,900 unit PER PROTOCOL PRN Administration Low PTT Protocol Ampicillin Sodium/Sulbactam 50 mls @ 100 mls/hr 01/15/20 22:00 01/16/20 11:35 Sodium 1.5 gm/ Sodium Chloride IVPB 100 mls/hr Q6H [facility] Administration Heparin Sodium/Sodium Chloride 250 mls @ 9.362 mls/hr 01/15/20 17:45 01/16/20 04:39 25,000 unit/ Sodium Chloride IV 01/16/20 18:00 15 units/kg/hr .Q24H G[facility] 11.703 mls/hr Titration Protocol 12 UNITS/KG/HR Levothyroxine Sodium 100 mcg/ 175 mcg 01/16/20 06:30 01/16/20 05:31 Levothyroxine Sodium 75 mcg PO 175 mcg DAILY@0630 GIL[facility] Administration Metoprolol Tartrate 25 mg 01/16/20 21:00 Lopressor PO BID G[facility] Morphine Sulfate 30 mg 01/15/20 21:00 01/16/20 08:33 Ms Contin PO 30 mg Q12HR [facility] Administration Naloxone HCl 0.2 mg 01/15/20 15:04 Narcan IV Q2M PRN Opioid Reversal Oxycodone/Acetaminophen 1 each 01/15/20 18:00 01/16/20 05:32 Percocet 7.5-325 PO 1 each Q6HR [facility] Administration Intake and Output 01/15/20 01/16/20 01/16/20 22:59 06:59 14:59 Intake Total 230 256.599 Balance 230 256.599 Intake: Intake, IV Titration 50 136.599 Amount Ampicillin-Sulbactam 1.5 50 50 gm In Sodium Chloride 0.9 % 50 ml @ 100 mls/hr IVPB ONCE STA Rx#:[id number] Heparin Sod,Pork in 0.45% 86.599 NaCl 25,000 unit In 0.45 % NaCl 1 250ml.bag @ 12 UNITS/KG/HR 9.362 mls/hr IV .Q24H [facility] Rx#: [id number] Oral 180 120 Other: Voiding Method Bedside Commode Bedside Commode Bedside Commode # Voids 2 1 Weight 78.018 kg 01/16/20 09:05 01/16/20 09:05
[2020-01-16 14:00] VITALS: BMI 29.5
[2020-01-16 15:02] LABS: T4, Free (Free Thyroxine) 3.74 ng/dL (0.78-2.19)
[2020-01-16] MEDS: HEPARIN SOD,PORK IN 0.45% NACL 25,000 UNIT in 0.45% NACL 1 250ML.BAG IV SCH (17:22)
[2020-01-16] MEDS ORDERED: HEPARIN SODIUM,PORCINE 5,000 UNIT/ML 1 ML VIAL IV PRN (18:17)
[2020-01-16] MEDS ORDERED: HEPARIN SOD,PORK IN 0.45% NACL 25,000 UNIT in 0.45% NACL 1 250ML.BAG IV SCH (18:30)
[2020-01-16] MEDS ORDERED: APIXABAN 5 MG TAB PO SCH (21:00)
[2020-01-16] MEDS ORDERED: METOPROLOL TARTRATE 25 MG TAB PO SCH (21:00)
--- NOTE | 2020-01-16 22:15 | P.CONS ---
History of Present Illness - Reason for Consult Consult date: 01/16/20 Head and Neck Cancer Requesting physician: Russel Sherwood - Chief Complaint Increased Mental Status - History of Present Illness Radha is a 64 year old female who has been under the care of [facility] for treatment of her multiple cancers. She has a history of colon cancer (resected), Lymphoma (unknown type), and most recently squamous cell carcinoma of the head and neck. She was brought to hospital for increased confusion. A ct in the emergency department was completed and revealed concern for pneumocephalus inferior later. She has recently completed concurrent radiation and chemotherapy under the care of Dr. Hassan. I have discussed this case with her radiation oncologist at [facility] and it appears the findings on todays CT are new compared to recent MRI at [place] and would justify further evaluation by neuro surgery. Review of Systems ROS unobtainable: due to mental status Past Medical History Past Medical History: Asthma, Cancer, Heart Failure, GERD/Reflux, Hyperlipidemia, Hypertension, Sleep Apnea/CPAP/BIPAP Additional Past Medical History / Comment(s): Squamous cell jaw cancer/affects optic nerve and sinuses with mets to brain-pt finished chemo/radiation 12/04/19, past R colon cancer with colectomy and chemo, past skin cancer removed from back, lymphoma 08/2019 with chemo, past IOANA-has not used Cpap in over a year, H. pylori, colitis, NIDDM type II, hypothyroid. History of Any Multi-Drug Resistant Organisms: None Reported Past Surgical History: Appendectomy, Bowel Resection, Cholecystectomy, Orthopedic Surgery, Tonsillectomy Additional Past Surgical History / Comment(s): right chest port, colon resection, skin cancer removal, benign ovarian mass removed, L foot bunionectomy/spurs removed. Past Anesthesia/Blood Transfusion Reactions: No Reported Reaction Smoking Status: Former smoker - Past Family History Father Family Medical History: Diabetes Mellitus Mother Family Medical History: No Reported History Medications and Allergies Home Medications Medication Instructions Recorded Confirmed Type Dapagliflozin Propanediol [Farxiga] 10 mg PO DAILY 01/15/20 01/15/20 History Dexamethasone [Decadron] 4 mg PO Q48H 01/15/20 01/15/20 History Gabapentin 900 mg PO TID 01/15/20 01/15/20 History Levothyroxine Sodium [Synthroid] 175 mcg PO DAILY 01/15/20 01/15/20 History Lisinopril 20 mg PO BID 01/15/20 01/15/20 History Morphine Sulfate ER [Ms Contin] 30 mg PO Q12HR 01/15/20 01/15/20 History amLODIPine [Norvasc] 10 mg PO DAILY 01/15/20 01/15/20 History metFORMIN HCL 1,000 mg PO BID 01/15/20 01/15/20 History oxyCODONE HCL/ACETAMINOPHEN 1 tab PO Q6HR 01/15/20 01/15/20 History [Percocet 7.5-325 mg] Apixaban [Eliquis] 5 mg PO BID #60 tab 01/16/20 Rx Allergies Allergy/AdvReac Type Severity Reaction Status Date / Time shellfish derived [Shellfish] Allergy Rash/Hives Verified 01/15/20 12:50 Physical Exam Vitals: Vital Signs Temp Pulse Resp BP Pulse Ox 01/16/20 11:41 97.5 F L 67 16 119/76 98 01/16/20 05:36 97.8 F 71 16 117/61 98 01/15/20 20:00 98.4 F 100 16 125/65 97 Intake and Output 01/16/20 01/16/20 01/16/20 06:59 14:59 22:59 Intake Total 256.599 148.823 Balance 256.599 148.823 Intake: Intake, IV Titration 136.599 148.823 Amount Ampicillin-Sulbactam 1.5 50 gm In Sodium Chloride 0.9 % 50 ml @ 100 mls/hr IVPB ONCE STA Rx#:[id number] Heparin Sod,Pork in 0.45% 86.599 148.823 NaCl 25,000 unit In 0.45 % NaCl 1 250ml.bag @ 12 UNITS/KG/HR 9.362 mls/hr IV .Q24H [facility] Rx#: [id number] Oral 120 Other: Voiding Method Bedside Commode Bedside Commode # Voids 1 2 Weight 78.018 kg Gen: Calm, in NAD, does not make eye contact or answer questions appropriately Neck: Supple HEart: RRR Lungs: CTA bilater, no increased effort Abd: S.nd.nt Ext: No edema Psych: expressive aphasia and inability to focus o answer appropriately Results CBC & Chem 7: 01/16/20 09:05 01/16/20 09:05 Labs: Abnormal Lab Results - Last 24 Hours (Table) 01/16/20 01/16/20 01/16/20 Range/Units 09:05 09:05 09:05 RBC 2.61 L (3.80-5.40) m/uL Hgb 8.0 L D (11.4-16.0) gm/dL Hct 25.2 L (34.0-46.0) % RDW 16.8 H (11.5-15.5) % Plt Count 123 L (150-450) k/uL Lymphocytes # 0.2 L (1.0-4.8) k/uL APTT 48.0 H (22.0-30.0) sec Sodium 133 L (137-145) mmol/L BUN 32 H (7-17) mg/dL Glucose 147 H (74-99) mg/dL Calcium 8.0 L (8.4-10.2) mg/dL TSH (0.465-4.680) mIU/L Free T4 (0.78-2.19) ng/dL 01/16/20 Range/Units 09:05 RBC (3.80-5.40) m/uL Hgb (11.4-16.0) gm/dL Hct (34.0-46.0) % RDW (11.5-15.5) % Plt Count (150-450) k/uL Lymphocytes # (1.0-4.8) k/uL APTT (22.0-30.0) sec Sodium (137-145) mmol/L BUN (7-17) mg/dL Glucose (74-99) mg/dL Calcium (8.4-10.2) mg/dL TSH <0.015 L (0.465-4.680) mIU/L Free T4 3.74 H (0.78-2.19) ng/dL CT Scan - head: report reviewed Assessment and Plan (1) Head and neck cancer Status: Acute Code(s): C76.0 - MALIGNANT NEOPLASM OF HEAD, FACE AND NECK SNOMED Code(s): 134815315 (2) History of colon cancer Status: Acute Code(s): Z85.038 - PERSONAL HISTORY OF MALIGNANT NEOPLASM OF LARGE INTESTINE SNOMED Code(s): 103868203 Plan: Assessment and recommendations: 1. Mental Status Changes: - Has been worsening over past couple days per [place] - CT scan concerning for pneumocephalus therefore will require further evaluation by neuro-surgery - CT also revealed Vasogenic edema present 2. Squamous cell carcinoma head and neck: - Status post concurrent radiation and chemotherapy 3. Hx: of Lymphoma per (unknown type) 4. Hx: Colon Cancer with resection in 2012 I have discussed this case in detail with Dr Hassan and primary team. We will plan to transfer patient to [facility] for neuro-surgery evaluation. Continue broad spectrum antibiotics Thank you for allowing us to participate with this patient. Greater than 35 minutes spent with patient and communicating with patient family, primary team hospitalists, and oncologist at [facility]. Greater than 50% of this was counseling and cordinating care
--- NOTE | 2020-01-17 10:39 | ECHOF ---
Referral Reason:EKG results on admission MEASUREMENTS -------- HEIGHT: 162.6 cm WEIGHT: 78.0 kg BP: 117/61 RVIDd: 3.0 cm (< 3.3) IVSd: 1.2 cm (0.6 - 1.1) LVIDd: 4.0 cm (3.9 - 5.3) LVPWd: 1.2 cm (0.6 - 1.1) IVSs: 1.7 cm LVIDs: 2.9 cm LVPWs: 1.6 cm LA Diam: 3.7 cm (2.7 - 3.8) LAESV Index (A-L): 31.60 ml/m Ao Diam: 3.0 cm (2.0 - 3.7) AV Cusp: 1.7 cm (1.5 - 2.6) MV EXCURSION: 19.676 mm (> 18.000) MV EF SLOPE: 105 mm/s (70 - 150) EPSS: 0.2 cm MV E Haseeb: 0.93 m/s MV DecT: 198 ms MV A Haseeb: 0.95 m/s MV E/A Ratio: 0.98 RAP: 5.00 mmHg RVSP: 26.94 mmHg FINDINGS -------- This was a technically good study. The left ventricular size is normal. There is borderline concentric left ventricular hypertrophy. Overall left ventricular systolic function is normal with, an EF between 60 - 65 %. The right ventricle is normal in size. The left atrial size is normal. The right atrium is normal in size. Interatrial and interventricular septum intact. There is mild aortic valve sclerosis. The mitral valve leaflets are mildly thickened. Mild mitral annular calcification present. There is trace to mild mitral regurgitation. Mild tricuspid regurgitation present. Right ventricular systolic pressure is normal at < 35 mmHg. Trace/mild (physiologic) pulmonic regurgitation. The aortic root size is normal. Normal inferior vena cava with normal inspiratory collapse consistent with estimated right atrial pre ssure of 5 mmHg. There is no pericardial effusion. CONCLUSIONS -------- 1. This was a technically good study. 2. The left ventricular size is normal. 3. There is borderline concentric left ventricular hypertrophy. 4. Overall left ventricular systolic function is normal with, an EF between 60 - 65 %. 5. The right ventricle is normal in size. 6. The left atrial size is normal. 7. The right atrium is normal in size. 8. Interatrial and interventricular septum intact. 9. There is mild aortic valve sclerosis. 10. The mitral valve leaflets are mildly thickened. 11. Mild mitral annular calcification present. 12. There is trace to mild mitral regurgitation. 13. Mild tricuspid regurgitation present. 14. Right ventricular systolic pressure is normal at < 35 mmHg. 15. Trace/mild (physiologic) pulmonic regurgitation. 16. The aortic root size is normal. 17. Normal inferior vena cava with normal inspiratory collapse consistent with estimated right atrial pressure of 5 mmHg. 18. There is no pericardial effusion. RELATIONSHIP COUNSELOR: AMY Ashley
--- NOTE | 2020-01-17 14:52 | CDI ---
Documentation Clarification Form Date: 01/17/20 From: Kia Delgado CCS Phone: If you have a question about this query, please contact Mela Mejia, Ophthalmic Asst at [phone] between 8am and 5pm. Admit Date: 01/15/20 Discharge Date:01/16/20 Patient Name: Radha Ansari Visit Number: [id number] ATTENTION: The Clinical Documentation Specialists (CDI) and [facility] Coding Staff appreciate your assistance in clarifying documentation. Please respond to the clarification below the line at the bottom and electronically sign. The CDI & [facility] Coding staff will review the response and follow-up if needed. Please note: Queries are made part of the Legal Health Record. If you have any questions, please contact the author of this message via ITS. Dear Dr. Bui, Altered Mental Status was documented in the Consult. Mental Status Changes: - Has been worsening over past couple days per [place] - CT scan concerning for pneumocephalus therefore will require further evaluation by neuro-surgery ROS unobtainable: due to mental status History/Risk Factors: Cerebral edema, Cancer in temporal region, AFIB, Failure to thrive, HHD, Dehydration, DM Clinical Indicators: Mental status changes. CT: Aggressive destructive left temporal mass or neoplasm redemonstrated as detailed above. Treatment: Neuro eval In your professional opinion, please clarify the etiology of the Altered Mental Status, if known. Delirium (specify cause): Encephalopathy due to malignancy Encephalopathy due to Altered mental status Other condition (please specify) Unable to determine Encephalopathy due to malignancy MTDD
== END 2020-01-16 20:15 | disposition short-term general hospital (02) | DRG 308 ==
LOC: EC 11:51 → 5NMEDONC 15:04
PROVIDERS: ADMIT Internal Medicine; ATTEND Internal Medicine
DX: I48.0 Paroxysmal atrial fibrillation (principal); G93.6 Cerebral edema; N17.9 Acute kidney failure, unspecified; C79.31 Secondary malignant neoplasm of brain; Z11.59 Encounter for screening for other viral diseases; G13.1 Other systemic atrophy primarily affecting central nervous system in neoplastic disease; R62.7 Adult failure to thrive; C76.0 Malignant neoplasm of head, face and neck; I50.9 Heart failure, unspecified; I11.0 Hypertensive heart disease with heart failure; G93.89 Other specified disorders of brain; E11.9 Type 2 diabetes mellitus without complications; E86.0 Dehydration; R55 Syncope and collapse; E83.42 Hypomagnesemia; E78.5 Hyperlipidemia, unspecified; G47.33 Obstructive sleep apnea (adult) (pediatric); E03.9 Hypothyroidism, unspecified; K21.9 Gastro-esophageal reflux disease without esophagitis; J45.909 Unspecified asthma, uncomplicated; Z68.29 Body mass index [BMI] 29.0-29.9, adult; Z79.84 Long term (current) use of oral hypoglycemic drugs; Z79.899 Other long term (current) drug therapy; Z79.890 Hormone replacement therapy; Z79.891 Long term (current) use of opiate analgesic; Z98.890 Other specified postprocedural states; Z92.21 Personal history of antineoplastic chemotherapy; Z92.3 Personal history of irradiation; Z90.49 Acquired absence of other specified parts of digestive tract; Z85.038 Personal history of other malignant neoplasm of large intestine; Z71.3 Dietary counseling and surveillance; Z85.828 Personal history of other malignant neoplasm of skin; Z85.72 Personal history of non-Hodgkin lymphomas; Z87.891 Personal history of nicotine dependence; Z91.013 Allergy to seafood; Z83.3 Family history of diabetes mellitus
CPT/HCPCS: 36415; 70470; 71046; 80048; 80053; 81003; 83735; 84439; 84443; 84484; 85025; 85610; 85730; 93005; 93306; 96361; 96365; 99285